=== PATIENT | male | born 1985 | race Caucasian/White ===

== ENCOUNTER → 2022-10-22 | Outpatient (CLI) | payer OTHER, SELFPAY ==
--- NOTE | 2022-10-22 08:04 | RAD_ITS ---
EXAM: XR RIGHT WRIST COMPLETE, 3 OR MORE VIEWS CLINICAL INDICATION: RIGHT WRIST PAIN TECHNIQUE: Frontal, lateral and oblique views of the right wrist. COMPARISON: No relevant prior studies available. FINDINGS: BONES/JOINTS: Unremarkable. No acute fracture. No subluxation. Normal alignment. Preservation of the joint space. No sclerotic or destructive changes observed. SOFT TISSUES: Minimal dorsal soft tissue swelling on the lateral view. No radiopaque foreign body. RAD/Wrist min 3 Views IMPRESSION: Minimal soft tissue swelling. Electronically Signed: Marci Henson MD at 8:30 EDT ,
== END | disposition home or self-care (01) ==
LOC: RAD 08:02
PROVIDERS: PCP Physician Assistant; Referring Provider Physician Assistant; Visit Provider Physician Assistant
DX: M25.531 Pain in right wrist (principal); G89.29 Other chronic pain; M67.40 Ganglion, unspecified site
CPT/HCPCS: 73110